=== PATIENT | male | born 1985 | race Caucasian/White ===

== ENCOUNTER 2017-01-19 20:57 | Emergency (ER) | payer BC ==
[2017-01-19 21:06] VITALS: BP 117/73; PULSE 81; RESP 17; TEMP 98.4; O2SAT 96
--- NOTE | 2017-01-19 21:37 | EDPHY ---
H & P Smoking Status: Never smoked Time Seen by Provider: 01/19/17 21:22 HPI/ROS: CHIEF COMPLAINT: Facial trauma HISTORY OF PRESENT ILLNESS: 31-year-old male presents to the emergency department after he fell 2 days ago onto his nose. He did not lose consciousness. He was concerned because he is still having pain in his nose and he is having difficulty breathing out of his nose. The patient did have epistaxis right after the fall, however has not had any problems with this since then. No chest pain or difficulty breathing. He states it was purely a mechanical fall. He denies a headache. Denies chest pain or difficulty breathing. Denies neck or back pain. Denies injury to upper lower extremities. Denies abdominal pain. REVIEW OF SYSTEMS: Constitutional: No fever, no chills. Eyes: No double or blurry vision. ENT: No sore throat. Respiratory: No cough, no shortness of breath. Cardiac: No chest pain. Gastrointestinal: No abdominal pain, vomiting or diarrhea. Genitourinary: No dysuria. Musculoskeletal: No neck or back pain. Skin: No rashes. Neurological: No headache. (Zahra Lomas) Past Medical/Surgical History: Negative (Zahra Lomas) Social History: Single (Zahra Lomas) Physical Exam: General Appearance: Alert, no distress. Mentating normally and answering questions appropriately. Eyes: Pupils equal and round. Extraocular motions are all intact. ENT: Mouth: Mucous membranes moist. No septal hematoma. No epistaxis. Tender to palpate both over the left and the right nasal bone. Nontender to palpate over the maxillary or frontal sinuses. Nontender to palpate over the orbits. Respiratory: No wheezing, rhonchi, or rales, lungs are clear to auscultation. Cardiovascular: Regular rate and rhythm. Gastrointestinal: Abdomen is soft and nontender, no masses, no rebound or guarding, bowel sounds normal. Neurological: Alert and oriented x 3, cranial nerves II through XII grossly intact Skin: Warm and dry, no rashes. Musculoskeletal: Nontender to palpate along the cervical, thoracic or lumbar spine. Neck is supple. Extremities: Full range of motion and no peripheral edema. Pain with palpation over the left 5th PIP joint. Full flexion and extension. No rotational deformities. No ecchymosis, abrasion or puncture wound. Psychiatric: Patient is oriented X 3, there is no agitation. (Zahra Lomas) Constitutional: Initial Vital Signs Temperature (C) 36.9 C 01/19/17 21:05 Heart Rate 81 01/19/17 21:05 Respiratory Rate 17 01/19/17 21:05 Blood Pressure 117/73 01/19/17 21:05 O2 Sat (%) 96 01/19/17 21:05 O2 Delivery Mode Room Air Allergies/Adverse Reactions: hydrocortisone Allergy (Verified 01/19/17 21:05) Home Medications: Medication Instructions Recorded NK [No Known Home Meds] 01/19/17 Medical Decision Making ED Course/Re-evaluation: 31-year-old male presents after closed head injury with. The patient fell 2 days ago. He is mentating normally. I do not think CT imaging is indicated. Clinically I think this patient has a nasal bone fracture. I do not think imaging is necessary. He has no evidence of orbital injury or injury to his sinuses. This was discussed with the patient. I also gave the patient ENT referral and he will follow up this week. The patient does have some mild swelling to the PIP joint of the left 5th finger. He declined x-rays. (Fozia Lomasrina Ria) I did not see this patient while he was in the emergency department. However his care was discussed with the PA while the patient was in the department. I agree with treatment plan and management (Tung Wallace) Differential Diagnosis: Head injury including but not limited to concussion, skull fracture, intraparenchymal contusion, subarachnoid, subdural and epidural hematoma. (Zahra Lomas) Departure - Departure Disposition: Home, Routine, Self-Care Clinical Impression: Contusion left small finger Nasal bone fracture Qualifiers: Encounter type: initial encounter Fracture type: closed Qualified Code(s): S02.2XXA - Fracture of nasal bones, initial encounter for closed fracture Condition: Good Instructions: Nasal Fracture (ED), Finger Sprain (ED) Additional Instructions: Ibuprofen 600 mg every 8 hours as needed for pain. Return to the emergency department if you develop numbness or tingling in your fingers, pain in your other fingers. Fortunato-taped fingers for comfort and support. Follow up with ENT next week to recheck your clinical nasal bone fracture. You are clear to return to work. Referrals: Tung Martinez MD [Medical Doctor] - 2-3 days without fail (ENT on-call) Stand Alone Forms: Work Excuse
== END 2017-01-19 22:00 | disposition home or self-care (01) ==
DX: S02.2XXA Fracture of nasal bones, initial encounter for closed fracture (principal); S60.052A Contusion of left little finger without damage to nail, initial encounter; W18.39XA Other fall on same level, initial encounter

== ENCOUNTER 2017-06-22 21:21 | Emergency (ER) | payer BC ==
[2017-06-22 21:26] VITALS: TEMP 97.5
--- NOTE | 2017-06-22 21:54 | EDPHY ---
H & P Stated Complaint: nausea vomiting, diarrhea x 1 week HPI/ROS: HPI CHIEF COMPLAINT: Nausea vomiting and diarrhea HISTORY OF PRESENT ILLNESS: This patient very pleasant 32-year-old male otherwise healthy no significant medical history does not take any daily medications presents emergency room nausea vomiting diarrhea. Patient reports to me that for approximately a week he has had some watery diarrhea nonbloody. Denies any fever. Denies abdominal pain. Denies chest pain or shortness of breath. He additionally reports nausea with this. Worse after he eats. He developed 1 episode of vomiting at 10:00 a.m. this morning. States he gets worsening nausea vomiting and diarrhea. Denies fever. Recent travel. Blood in his stool. Denies abdominal pain. Decided come the emergency room as he vomited 10:00 a.m.. Ongoing diarrhea. Had to leave work yesterday. Past Medical History: No significant medical history Past Surgical History: No significant surgical history Social History: Denies daily use of drugs alcohol tobacco products. Family History: Noncontributory ROS REVIEW OF SYSTEMS: A comprehensive 10 point review of systems is otherwise negative aside from elements mentioned in the history of present illness. Exam Constitutional appears well nontoxic, triage nursing summary reviewed, vital signs reviewed, awake/alert. Eyes normal conjunctivae and sclera, EOMI, PERRLA. HENT normal inspection, atraumatic, moist mucus membranes, no epistaxis, neck supple/ no meningismus, no raccoon eyes. Respiratory clear to auscultation bilaterally, normal breath sounds, no respiratory distress, no wheezing. Cardiovascular rate normal, regular rhythm, no murmur, no edema, distal pulses normal. Gastrointestinal no tenderness on palpation. soft, non-tender, no rebound, no guarding, normal bowel sounds, no distension, no pulsatile mass. Genitourinary no CVA tenderness. Musculoskeletal no midline vertebral tenderness, full range of motion, no calf swelling, no tenderness of extremities, no meningismus, good pulses, neurovascularly intact. Skin pink, warm, & dry, no rash, skin atraumatic. Neurologic awake, alert and oriented x 3, AAOx3, moves all 4 extremities equally, motor intact, sensory intact, CN II-XII intact, normal cerebellar, normal vision, normal speech. Psychiatric normal mood/affect. Heme/Lymph/Immune no lymphadenopathy. Differential Diagnosis: Includes but is not limited to in a particular order dehydration, electrolyte disturbance, acute diarrheal illness, viral syndrome, enteritis, colitis, viral diarrheal process, bacterial diarrheal process Medical Decision Making: Plan for this patient IV establishment with IV fluid bolus, 1 L normal saline, IV Zofran for nausea, blood work, I do not feel that he needs any imaging at this time. Will crest stool studies if patient can provide. Re-evaluation: 2237: Patient's blood work reviewed. Shows elevated LFTs mild. Recommend close follow-up with his primary care doctor to have these recheck. He does not have any right upper quadrant abdominal pain. Bilirubin normal. This setting of having acute diarrheal illness with elevated LFTs possibly viral. Recommend recheck of a LFTs with his primary next week. Also return precautions given emergency room return if worsening symptoms including diarrhea turned bloody, vomiting, fever, abdominal pain. He understands. 2335: Re-evaluation this time patient not any vomiting. No bowel movement here. Stool collection kit sent with him. He understands return emergency room if develops worsening abdominal pain fever vomiting. Worsening diarrhea. His abdomen is soft. No vomiting here. No fever. LFTs noted I discussed this with him. Understands follow-up primary care doctor for recheck. Understands return precautions. Source: Patient - Personal History Current Tetanus Diphtheria and Acellular Pertussis (TDAP): Yes - Medical/Surgical History Hx Asthma: No Hx Chronic Respiratory Disease: No Hx Diabetes: No Hx Cardiac Disease: No Hx Renal Disease: No Hx Cirrhosis: No Hx Alcoholism: No Hx HIV/AIDS: No Hx Splenectomy or Spleen Trauma: No Other PMH: denies - Social History Smoking Status: Never smoked Constitutional: Initial Vital Signs Temperature (C) 36.4 C 06/22/17 21:23 Heart Rate 81 06/22/17 21:23 Respiratory Rate 16 06/22/17 21:23 Blood Pressure 124/88 H 06/22/17 21:23 O2 Sat (%) 91 L 06/22/17 21:23 O2 Delivery Mode Room Air Allergies/Adverse Reactions: hydrocortisone Allergy (Verified 01/19/17 21:05) Home Medications: Medication Instructions Recorded Ondansetron HCl [Zofran] 4 mg PO Q4-6PRN PRN #10 tablet 06/22/17 Medical Decision Making - Data Points Laboratory Results: Laboratory Results 06/22/17 21:40 06/22/17 21:40 06/22/17 06/22/17 21:40 21:40 WBC 6.91 10^3/uL 10^3/uL (3.80-9.50) RBC 4.95 10^6/uL 10^6/uL (4.40-6.38) Hgb 16.7 g/dL g/dL (13.7-17.5) Hct 46.2 % % (40.0-51.0) MCV 93.3 fL fL (81.5-99.8) MCH 33.7 pg pg (27.9-34.1) MCHC 36.1 g/dL g/dL (32.4-36.7) RDW 12.3 % % (11.5-15.2) Plt Count 283 10^3/uL 10^3/uL (150-400) MPV 9.6 fL fL (8.7-11.7) Neut % (Auto) 58.7 % % (39.3-74.2) Lymph % (Auto) 29.7 % % (15.0-45.0) [place] % (Auto) 8.0 % % (4.5-13.0) Eos % (Auto) 2.7 % % (0.6-7.6) Baso % (Auto) 0.6 % % (0.3-1.7) Nucleat RBC Rel Count 0.0 % % (0.0-0.2) Absolute Neuts (auto) 4.06 10^3/uL 10^3/uL (1.70-6.50) Absolute Lymphs (auto) 2.05 10^3/uL 10^3/uL (1.00-3.00) Absolute Monos (auto) 0.55 10^3/uL 10^3/uL (0.30-0.80) Absolute Eos (auto) 0.19 10^3/uL 10^3/uL (0.03-0.40) Absolute Basos (auto) 0.04 10^3/uL 10^3/uL (0.02-0.10) Absolute Nucleated RBC 0.00 10^3/uL 10^3/uL (0-0.01) Immature Gran % 0.3 % % (0.0-1.1) Immature Gran # 0.02 10^3/uL 10^3/uL (0.00-0.10) Sodium 139 mEq/L mEq/L (134-144) Potassium 4.3 mEq/L mEq/L (3.5-5.2) Chloride 103 mEq/L mEq/L (97-110) Carbon Dioxide 23 mEq/l mEq/l (22-31) Anion Gap 13 mEq/L mEq/L (8-16) BUN 12 mg/dL mg/dL (7-23) Creatinine 0.9 mg/dL mg/dL (0.7-1.3) Estimated GFR > 60 Glucose 88 mg/dL mg/dL (70-100) Calcium 9.7 mg/dL mg/dL (8.5-10.4) Total Bilirubin 0.9 mg/dL mg/dL (0.1-1.4) Conjugated Bilirubin 0.3 mg/dL mg/dL (0.0-0.5) Unconjugated Bilirubin 0.6 mg/dL mg/dL (0.0-1.1) AST 143 IU/L H IU/L (17-59) ALT 177 IU/L H IU/L (21-72) Alkaline Phosphatase 68 IU/L IU/L (38-126) Total Protein 7.6 g/dL g/dL (6.3-8.2) Albumin 4.5 g/dL g/dL (3.5-5.0) Lipase 85 IU/L IU/L (23-300) Medications Given: Discontinued Medications Sodium Chloride (Ns) 1,000 mls @ 0 mls/hr IV EDNOW ONE; Wide Open PRN Reason: Protocol Stop: 06/22/17 21:59 Last Admin: 06/22/17 22:04 Dose: 1,000 mls Sodium Chloride (Ns) 1,000 mls @ 0 mls/hr IV ONCE ONE PRN Reason: Wide Open Stop: 06/22/17 23:11 Last Admin: 06/22/17 23:23 Dose: 1,000 mls Ondansetron HCl (Zofran) 4 mg IVP EDNOW ONE Stop: 06/22/17 21:59 Last Admin: 06/22/17 22:05 Dose: 4 mg Departure - Departure Disposition: Home, Routine, Self-Care Clinical Impression: Elevated LFTs Diarrhea Qualifiers: Diarrhea type: unspecified type Qualified Code(s): R19.7 - Diarrhea, unspecified Condition: Good Instructions: Acute Nausea and Vomiting (ED), Acute Diarrhea (ED) Additional Instructions: 1. Return to the emergency room if you have worsening symptoms includes worsening abdominal pain vomiting fever diarrhea. Bloody stool. 2. Please have your elevated LFTs recheck by her primary care doctor. I would do this in the next week. Referrals: NONE *PRIMARY CARE P,. [Primary Care Provider] - As per Instructions Prescriptions: Ondansetron HCl [Zofran] 4 mg PO Q4-6PRN PRN #10 tablet PRN Reason: Nausea/Vomiting, Use 1st
[2017-06-22] MEDS ORDERED: NS 1,000 ML IV ONE ×2 (21:58→23:10)
[2017-06-22] MEDS ORDERED: ONDANSETRON 4 MG/2 ML VIAL IVP ONE (21:58)
[2017-06-22 22:05] LABS: % IMMATURE GRANULYOCYTES 0.3 % (0.0-1.1); ABSOLUTE IMMATURE GRANULOCYTES 0.02 10^3/uL (0.00-0.10); ADD DIFF? NO; ADD MORPH? NO; ADD SCAN? NO; ATYPICAL LYMPHOCYTE FLAG 0 (0-99); FRAGMENT RBC FLAG 0 (0-99); HEMATOCRIT 46.2 % (40.0-51.0); HEMOGLOBIN 16.7 g/dL (13.7-17.5); LEFT SHIFT FLG 0 (0-99); LIPEMIA HEMOLYSIS FLAG 90 (0-99); MEAN CELL HEMOGLOBIN 33.7 pg (27.9-34.1); MEAN CELL HEMOGLOBIN CONCENTR. 36.1 g/dL (32.4-36.7); MEAN CELL VOLUME 93.3 fL (81.5-99.8); MEAN PLATELET VOLUME 9.6 fL (8.7-11.7); PLATELET CLUMPS FLAG 0 (0-99); PLATELET COUNT 283 10^3/uL (150-400); RED BLOOD CELL COUNT 4.95 10^6/uL (4.40-6.38); RED CELL DISTRIBUTION WIDTH 12.3 % (11.5-15.2)
[2017-06-22 22:22] LABS: ALANINE AMINOTRANSFERASE 177 IU/L (21-72); ALBUMIN 4.5 g/dL (3.5-5.0); ALKALINE PHOSPHATASE 68 IU/L (38-126); ANION GAP 13 mEq/L (8-16); ASPARTATE AMINOTRANSFERASE 143 IU/L (17-59); BILIRUBIN,TOTAL 0.9 mg/dL (0.1-1.4); BILIRUBIN-CONJUGATED 0.3 mg/dL (0.0-0.5); BILIRUBIN-UNCONJUGATED 0.6 mg/dL (0.0-1.1); CALCIUM 9.7 mg/dL (8.5-10.4); CARBON DIOXIDE 23 mEq/l (22-31); CHLORIDE 103 mEq/L (97-110); CREATININE 0.9 mg/dL (0.7-1.3); GLOMERULAR FILTRATION RATE > 60; GLUCOSE 88 mg/dL (70-100); POTASSIUM 4.3 mEq/L (3.5-5.2); SODIUM 139 mEq/L (134-144); TOTAL PROTEIN 7.6 g/dL (6.3-8.2)
[2017-06-23 00:11] VITALS: BP 112/77; PULSE 62; RESP 16; O2SAT 98
[2017-06-23 00:57] LABS: COLOR YELLOW; LEUKOCYTE ESTERASE,URINE NEGATIVE (NEGATIVE); NITRITE,URINE NEGATIVE (NEGATIVE)
[2017-06-23 00:59] LABS: MUCUS TRACE /lpf (NONE-1+)
== END 2017-06-23 01:03 | disposition home or self-care (01) ==
DX: R19.7 Diarrhea, unspecified (principal); R79.89 Other specified abnormal findings of blood chemistry
CPT/HCPCS: 96374; J2405

== ENCOUNTER 2017-10-22 15:14 | Emergency (ER) | payer BC, MEDICAID ==
[2017-10-22 15:19] VITALS: BP 142/84; PULSE 82; RESP 18; TEMP 98.4; O2SAT 94
--- NOTE | 2017-10-22 16:12 | EDPHY ---
H & P Time Seen by Provider: 10/22/17 15:49 HPI/ROS: Chief complaint: Insomnia History of present illness: This is a 32-year-old male who presents to the emergency department for insomnia. He states he has been unable to sleep for the last week. He has a long history of insomnia. He normally takes Rozeram but this is currently not controlling symptom. He states he is getting so exhausted that he is having trouble functioning. He denies other associated signs or symptoms. Review of systems: 10 point review of systems was obtained and other than described above was negative Smoking Status: Never smoked Physical Exam: General Appearance: Alert, nontoxic. Eyes: Pupils equal and round no injection. Respiratory: Chest is non tender, lungs are clear to auscultation. Cardiac: regular rate and rhythm Gastrointestinal: Abdomen is soft and non tender, no masses, bowel sounds normal. Musculoskeletal: Neck is supple and non tender. Extremities have full range of motion and are non tender. Skin: No rashes or lesions. Neurological: Alert and oriented x4. Strength and sensation intact and symmetrical. Constitutional: Initial Vital Signs Temperature (C) 36.9 C 10/22/17 15:15 Heart Rate 82 10/22/17 15:15 Respiratory Rate 18 10/22/17 15:15 Blood Pressure 142/84 H 10/22/17 15:15 O2 Sat (%) 94 10/22/17 15:15 O2 Delivery Mode Room Air Allergies/Adverse Reactions: hydrocortisone Allergy (Mild, Verified 10/22/17 15:18) Rash Home Medications: Medication Instructions Recorded Ramelteon [Rozerem] 8 mg PO 10/22/17 Temazepam [Restoril 15 MG (*)] 15 mg PO HSPRN PRN #5 cap 10/22/17 MDM/Departure - MDM ED Course/Re-evaluation: Patient seen under the supervision of my secondary supervising physician Dr. Priti Luo. Patient presents to the emergency department for insomnia. He is nontoxic. Physical exam is benign. We have discussed medications, he has been on multiple medications that have not worked well except for Rozerem which is currently not working well. I will treat him with a short course of Restoril. I have had a lengthy discussion that he is not to combine his sleep medications, he is only to use the one. I have discussed the importance of following up with a primary care doctor for further evaluation and care. He is given referral information. Return precautions are given. Patient voiced understanding and agreement with plan. - Depart Disposition: Home, Routine, Self-Care Clinical Impression: Insomnia Qualifiers: Insomnia type: unspecified Qualified Code(s): G47.00 - Insomnia, unspecified Condition: Good Instructions: Insomnia (ED) Additional Instructions: Follow-up with a primary care doctor this week for recheck Do not combine sleep medications, take only the medication you were prescribed today If symptoms worsen or new symptoms develop return to the emergency room for recheck Stand Alone Forms: Work Excuse Prescriptions: Temazepam [Restoril 15 MG (*)] 15 mg PO HSPRN PRN #5 cap PRN Reason: Achieve Desired Sedation Referrals: NONE *PRIMARY CARE P,. [Primary Care Provider] - As per Instructions [facility],. [Clinic] - As per Instructions Charisma Holland DO [Doctor of Osteopathy] - As per Instructions
== END 2017-10-22 16:26 | disposition home or self-care (01) ==
DX: G47.00 Insomnia, unspecified (principal)

== ENCOUNTER 2017-12-14 10:19 | Emergency (ER) | payer SELFPAY ==
[2017-12-14] MEDS ORDERED: KETOROLAC 30 MG/1 ML SDV IVP ONE (11:03)
[2017-12-14] MEDS ORDERED: NS 1,000 ML IV ONE (11:04)
--- NOTE | 2017-12-14 11:11 | EDPHY ---
H & P Time Seen by Provider: 12/14/17 10:56 HPI/ROS: CHIEF COMPLAINT: Abdominal HISTORY OF PRESENT ILLNESS: The patient is a 32-year-old male who presents to the emergency department with intermittent chronic abdominal pain. His current pain started 1-2 weeks ago. He states it is intermittent. It is primarily in the right lower quadrant. It is moderate. It proved after he has a bowel movement. He has had no nausea or vomiting. No fever or chills. No dysuria frequency. No flank pain. Patient states this is similar to his previous episodes of abdominal pain. Patient trauma. REVIEW OF SYSTEMS: My complete review of systems is negative except as mentioned in the HPI. Past Medical/Surgical History: Includes chronic abdominal pain, insomnia Past surgical history: No abdominal surgery Social history: Patient uses THC. He does not smoke or use alcohol. Smoking Status: Never smoked Physical Exam: Vitals noted GENERAL: Well-appearing, in no acute distress, alert. HEENT: Eyes normal to inspection, normal pharynx, no signs of dehydration. NECK: [No thyromegaly, no lymphadenopathy, supple. RESPIRATORY: Clear to auscultation bilaterally, no rales, rhonchi or wheezing. CVS: Regular rate and rhythm, no rubs, murmurs, or gallops. ABDOMEN: Soft, mild lower quadrant abdominal tenderness to palpation with no rebound or guarding, nondistended, no organomegaly. BACK: Normal to inspection, no CVA tenderness. SKIN: Normal color, no rash, warm, dry. No pallor. EXTREMITIES: No pedal edema, no calf tenderness, no Homans sign or cords, no joint swelling. NEURO/PSYCH: Alert and oriented, normal mood and affect, normal motor sensory exam. Constitutional: Initial Vital Signs Temperature (C) 36.5 C 12/14/17 10:20 Heart Rate 75 12/14/17 10:20 Respiratory Rate 16 12/14/17 10:20 Blood Pressure 119/92 H 12/14/17 10:20 O2 Sat (%) 97 12/14/17 10:20 O2 Delivery Mode Room Air Allergies/Adverse Reactions: hydrocortisone Allergy (Mild, Verified 12/14/17 10:25) Rash Home Medications: Medication Instructions Recorded NK [No Known Home Meds] 12/14/17 Medical Decision Making - Diagnostics Imaging Results: Imaging Impressions Abdomen Ultrasound 12/14/17 11:08 Impression: No indirect sonographic evidence for appendicitis. Results called to Dr. Man at 12:44 PM. ED Course/Re-evaluation: In the emergency department I discussed possible etiologies with the patient. I answered all his questions. An IV was placed. Laboratories were obtained. A right lower quadrant was ordered. Patient had Toradol 30 mg IV given. Reviewed the laboratory studies. His white count was normal. His LFTs remarkable for mildly elevated AST and ALT. Total bili and unconjugated bili were normal. Ultrasound: Please refer the dictated report. They were unable to visualize the appendix. The on recheck the patient still mild abdominal discomfort. He is given Bentyl. He will have a CT of the abdomen pelvis with IV contrast. CT of the abdomen pelvis with IV contrast: Please refer the dictated report. Normal appearing appendix. Patient does have a fatty liver. His bowel appears normal. The patient has bilateral nephrolithiasis. No obstruction. I discussed the results with the patient. On recheck he was feeling better. His abdomen was soft and nontender. I answered all his questions. He is given warnings prior to leaving. He will return with worsening symptoms. Differential Diagnosis: My differential includes but is not limited to small-bowel obstruction, perforation, appendicitis, volvulus, intussusception, viral illness, IBS - Data Points Laboratory Results: Laboratory Results 12/14/17 11:00 12/14/17 11:00 12/14/17 12/14/17 11:00 11:00 WBC 7.24 10^3/uL 10^3/uL (3.80-9.50) RBC 4.89 10^6/uL 10^6/uL (4.40-6.38) Hgb 17.4 g/dL g/dL (13.7-17.5) Hct 48.5 % % (40.0-51.0) MCV 99.2 fL fL (81.5-99.8) MCH 35.6 pg H pg (27.9-34.1) MCHC 35.9 g/dL g/dL (32.4-36.7) RDW 12.0 % % (11.5-15.2) Plt Count 227 10^3/uL 10^3/uL (150-400) MPV 10.0 fL fL (8.7-11.7) Neut % (Auto) 58.7 % % (39.3-74.2) Lymph % (Auto) 26.8 % % (15.0-45.0) [place] % (Auto) 9.5 % % (4.5-13.0) Eos % (Auto) 4.0 % % (0.6-7.6) Baso % (Auto) 0.6 % % (0.3-1.7) Nucleat RBC Rel Count 0.0 % % (0.0-0.2) Absolute Neuts (auto) 4.25 10^3/uL 10^3/uL (1.70-6.50) Absolute Lymphs (auto) 1.94 10^3/uL 10^3/uL (1.00-3.00) Absolute Monos (auto) 0.69 10^3/uL 10^3/uL (0.30-0.80) Absolute Eos (auto) 0.29 10^3/uL 10^3/uL (0.03-0.40) Absolute Basos (auto) 0.04 10^3/uL 10^3/uL (0.02-0.10) Absolute Nucleated RBC 0.00 10^3/uL 10^3/uL (0-0.01) Immature Gran % 0.4 % % (0.0-1.1) Immature Gran # 0.03 10^3/uL 10^3/uL (0.00-0.10) Sodium 141 mEq/L mEq/L (135-145) Potassium 4.2 mEq/L mEq/L (3.5-5.2) Chloride 98 mEq/L mEq/L (97-110) Carbon Dioxide 27 mEq/l mEq/l (22-31) Anion Gap 16 mEq/L mEq/L (8-16) BUN 10 mg/dL mg/dL (7-23) Creatinine 0.8 mg/dL mg/dL (0.7-1.3) Estimated GFR > 60 Glucose 97 mg/dL mg/dL (70-100) Calcium 9.8 mg/dL mg/dL (8.5-10.4) Total Bilirubin 1.2 mg/dL mg/dL (0.1-1.4) Conjugated Bilirubin 0.5 mg/dL mg/dL (0.0-0.5) Unconjugated Bilirubin 0.7 mg/dL mg/dL (0.0-1.1) AST 213 IU/L H IU/L (17-59) ALT 278 IU/L H IU/L (21-72) Alkaline Phosphatase 70 IU/L IU/L (38-126) Total Protein 8.1 g/dL g/dL (6.3-8.2) Albumin 5.0 g/dL g/dL (3.5-5.0) Lipase 154 IU/L IU/L (23-300) Medications Given: Discontinued Medications Sodium Chloride (Ns) 1,000 mls @ 0 mls/hr IV ONCE ONE PRN Reason: Wide Open Stop: 12/14/17 11:05 Last Admin: 12/14/17 11:05 Dose: 1,000 mls Ketorolac Tromethamine (Toradol) 30 mg IVP EDNOW ONE Stop: 12/14/17 11:04 Last Admin: 12/14/17 11:06 Dose: 30 mg Ondansetron HCl (Zofran) 4 mg IVP EDNOW ONE Stop: 12/14/17 13:08 Last Admin: 12/14/17 13:10 Dose: 4 mg Departure - Departure Disposition: Home, Routine, Self-Care Clinical Impression: Abdominal pain Qualifiers: Abdominal location: right lower quadrant Qualified Code(s): R10.31 - Right lower quadrant pain Condition: Good Instructions: Acute Abdominal Pain (ED) Additional Instructions: Return with increasing abdominal pain, vomiting, or any other concerns. You been given follow-up with the geographic information scientist. Call to make an appointment. Referrals: Chuy Melchor MD [Medical Doctor] - 5-7 days, if not improved
[2017-12-14 11:12] LABS: PLATELET COUNT 227 10^3/uL (150-400)
[2017-12-14] MEDS ORDERED: ONDANSETRON 4 MG/2 ML VIAL IVP ONE (13:07)
[2017-12-14] MEDS ORDERED: IOPAMIDOL (ISOVUE-300) 100 ML BTL ONE (13:38)
[2017-12-14 14:49] VITALS: RESP 18
[2017-12-14 15:04] VITALS: BP 120/84; PULSE 67; TEMP 98.1; O2SAT 96
== END 2017-12-14 15:03 | disposition home or self-care (01) ==
DX: R10.31 Right lower quadrant pain (principal)
CPT/HCPCS: 96374; J1885; J2405; Q9967

== ENCOUNTER 2018-02-14 02:23 | Emergency (ER) | payer SELFPAY ==
[2018-02-14] MEDS ORDERED: FAMOTIDINE 20 MG/NACL 50 ML IV ONE (02:45)
[2018-02-14] MEDS ORDERED: ONDANSETRON 4 MG/2 ML VIAL IVP ONE (02:45)
[2018-02-14] MEDS ORDERED: KETOROLAC 30 MG/1 ML SDV IVP ONE (02:45)
[2018-02-14] MEDS ORDERED: NS 1,000 ML IV ONE ×3 (02:45→03:51)
--- NOTE | 2018-02-14 02:45 | EDPHY ---
H & P Stated Complaint: vomiting for 3 days Time Seen by Provider: 02/14/18 02:34 HPI/ROS: HPI The patient presents with nausea, vomiting, abdominal pain which has been present for the last 5 days though getting progressively worse. It began with nausea and vomiting and then he has developed mid abdominal crampy intermittent abdominal pain with this. He says now it is to the point that he cannot take water in by mouth without vomiting. He has had multiple similar episodes though believes this is the most severe 1. He has not had any diarrhea. He has not had any fever. He denies any sick contacts.. He uses marijuana occasionally though since this illness he has been using it daily to see if it will help his symptoms and it has not. He denies any alcohol use recently. REVIEW OF SYSTEMS Constitutional: No fever, no chills. Eyes: No discharge. ENT: No sore throat. Cardiovascular: No chest pain, no palpitations. Respiratory: No cough, no shortness of breath. Gastrointestinal: See HPI Genitourinary: No hematuria. Musculoskeletal: No back pain. Skin: No rashes. Neurological: No headache. PMHx: Recurrent chronic abdominal pain Soc Hx: Occasional alcohol use, occasional marijuana use, nonsmoker PHYSICAL General Appearance: Alert, no distress Eyes: Pupils equal and round no pallor or injection ENT, Mouth: Mucous membranes dry Respiratory: There are no retractions, lungs are clear to auscultation Cardiovascular: Regular rate and rhythm Gastrointestinal: Abdomen is soft and mildly tender in the epigastrium, no masses, bowel sounds normal Neurological: A&O, moves all extremities Skin: Warm and dry, no rashes Musculoskeletal: Neck is supple non tender Extremities: symmetrical, full range of motion Psychiatric: Patient is oriented X 3, there is no agitation Source: Patient Exam Limitations: No limitations - Personal History Current Tetanus/Diphtheria Vaccine: Unsure Current Tetanus Diphtheria and Acellular Pertussis (TDAP): Unsure - Medical/Surgical History Hx Asthma: No Hx Chronic Respiratory Disease: No Hx Diabetes: No Hx Cardiac Disease: No Hx Renal Disease: No Hx Cirrhosis: No Hx Alcoholism: No Hx HIV/AIDS: No Hx Splenectomy or Spleen Trauma: No Other PMH: insomnia. chronic abd pain~1yr with neg w/u - Social History Smoking Status: Never smoked Constitutional: Initial Vital Signs Temperature (C) 36.8 C 02/14/18 02:25 Heart Rate 92 02/14/18 02:25 Respiratory Rate 18 02/14/18 02:25 Blood Pressure 114/84 H 02/14/18 02:25 O2 Sat (%) 94 02/14/18 02:25 O2 Delivery Mode Room Air O2 (L/minute) 2 Allergies/Adverse Reactions: hydrocortisone Allergy (Mild, Verified 02/14/18 02:28) Rash haloperidol Allergy (Verified 02/14/18 02:28) Home Medications: Medication Instructions Recorded Ondansetron Odt [Zofran Odt 4 mg 4 mg PO Q4 PRN #10 tab 02/14/18 (*)] Medical Decision Making Differential Diagnosis: This is a 32-year-old man with history of intermittent chronic abdominal pain who presents with nausea, vomiting, abdominal pain which have been present for the last 5 days and getting progressively worse. On exam, vital signs are normal, mucous membranes are dry, abdominal exam demonstrates mild epigastric tenderness. Differential diagnosis includes viral gastroenteritis, toxin mediated enterocolitis, gastritis, pancreatitis, cannabinoid hyperemesis syndrome, cyclic vomiting syndrome. In the emergency department, IV line was established and the patient was started on IV fluids and medication for his symptoms. Labs were checked Labs revealed an anion gap which I suspect is due to dehydration. He also has elevations of his transaminases. He has had this on previous laboratory testing , however this is slightly worse today. On review of his prior imaging in November he had a CT scan of his abdomen which revealed fatty infiltration of his liver which was quite severe. I suspect this is the cause of his transaminitis. After IV fluids, he was reassessed, he is feeling better. His abdominal exam is benign. He no longer has any epigastric tenderness. He was able to take fluids by mouth without any ongoing nausea or vomiting. He felt well enough to go home. He does not have a primary care doctor at this time, thus I will refer him to the outpatient doctor on-call. I have discussed return precautions to the emergency department. - Data Points Laboratory Results: Laboratory Results 02/14/18 02:50 02/14/18 02:50 Medications Given: Discontinued Medications Fentanyl (Sublimaze) 50 mcg IVP EDNOW ONE Stop: 02/14/18 03:52 Last Admin: 02/14/18 04:09 Dose: 50 mcg Sodium Chloride (Ns) 1,000 mls @ 0 mls/hr IV EDNOW ONE; Wide Open PRN Reason: Protocol Stop: 02/14/18 02:46 Last Admin: 02/14/18 02:51 Dose: 1,000 mls Sodium Chloride (Ns) 1,000 mls @ 0 mls/hr IV EDNOW ONE; Wide Open PRN Reason: Protocol Stop: 02/14/18 02:46 Last Admin: 02/14/18 03:00 Dose: 1,000 mls Famotidine/Sodium Chloride (Pepcid 20 Mg (Premix)) 50 mls @ 200 mls/hr IV EDNOW ONE Stop: 02/14/18 02:59 Last Admin: 02/14/18 02:55 Dose: 50 mls Sodium Chloride (Ns) 1,000 mls @ 0 mls/hr IV EDNOW ONE; Wide Open PRN Reason: Protocol Stop: 02/14/18 03:52 Last Admin: 02/14/18 04:09 Dose: 1,000 mls Ketorolac Tromethamine (Toradol) 15 mg IVP EDNOW ONE Stop: 02/14/18 02:46 Last Admin: 02/14/18 02:56 Dose: 15 mg Lorazepam (Ativan Injection) 1 mg IVP EDNOW ONE Stop: 02/14/18 02:55 Last Admin: 02/14/18 03:00 Dose: 1 mg Ondansetron HCl (Zofran) 4 mg IVP EDNOW ONE Stop: 02/14/18 02:46 Last Admin: 02/14/18 02:56 Dose: 4 mg Ondansetron HCl (Zofran Odt 4 Mg Prepack#2) 1 btl TAKEHOME EDNOW ONE Stop: 02/14/18 05:06 Last Admin: 02/14/18 05:18 Dose: 1 btl Departure - Departure Disposition: Home, Routine, Self-Care Clinical Impression: Nausea & vomiting, Abdominal pain, Transaminitis Condition: Good Instructions: Ondansetron (By mouth), Acute Nausea and Vomiting (ED), Acute Abdominal Pain (ED) Additional Instructions: Please drink clear liquids until your feeling better, then you can try bland foods. His you should return to the emergency department if your worse in any way. I recommend you established care with a primary care doctor and I have listed the name of the doctor below that you should follow up with. Referrals: Coni Figueroa MD [[facility] [place]] - As per Instructions Prescriptions: Ondansetron Odt [Zofran Odt 4 mg (*)] 4 mg PO Q4 PRN #10 tab PRN Reason: Nausea/Vomiting, Can'T Take Po
[2018-02-14] MEDS ORDERED: LORazepam 2 MG/ML INJ IVP ONE (02:54)
[2018-02-14 02:59] LABS: PLATELET COUNT 236 10^3/uL (150-400)
[2018-02-14] MEDS ORDERED: fentaNYL 100 MCG/2 ML INJ IVP ONE (03:51)
[2018-02-14] MEDS ORDERED: ONDANSETRON 4MG PREPACK#2 BTL TAKEHOME ONE (05:05)
[2018-02-14 05:15] VITALS: BP 107/61
== END 2018-02-14 05:32 | disposition home or self-care (01) ==
DX: R74.0 Nonspecific elevation of levels of transaminase and lactic acid dehydrogenase [LDH] (principal); E86.9 Volume depletion, unspecified
CPT/HCPCS: 96374; J1885; J2060; J2405; J3010

== ENCOUNTER 2018-02-18 22:36 | Emergency (ER) | payer SELFPAY ==
[2018-02-18] MEDS ORDERED: FAMOTIDINE 20 MG TAB PO ONE (23:12)
[2018-02-18] MEDS ORDERED: NS 1,000 ML IV ONE (23:12)
--- NOTE | 2018-02-18 23:12 | EDPHY ---
General - History Smoking Status: Never smoked Time Seen by Provider: 02/18/18 23:03 Narrative: CHIEF COMPLAINT: Nausea, vomiting, insomnia HISTORY OF PRESENT ILLNESS: Patient presents with complaints of nausea, vomiting insomnia. This has been going on "for a while," but it worsened on Sunday or Sunday. He describes it as multiple episodes of vomiting with some tolerance of liquids including alcohol. No tolerance of solids. Denies fever or trauma. Denies any previous abdominal surgeries but reports history of vomiting frequently with GERD and chronic abdominal pain. He does admit to smoking marijuana daily. He denies any previous formal diagnosis. No bloody emesis. Some diarrhea but no constipation. No bloody stool. He has so sees this with difficulty sleeping over the past several days. He says that "I'm so tired I'm hallucinating." Denies suicidal ideation or homicidal ideation. No other associated complaints or modifying factors. REVIEW OF SYSTEMS: Ten systems reviewed and are negative unless otherwise noted in the HPI PCP: In [place] SPECIALISTS: None PAST MEDICAL HISTORY: Reflux, insomnia, chronic abdominal pain PAST SURGICAL HISTORY: No abdominal surgeries. SOCIAL HISTORY: Denies tobacco use. Quit 3 years ago. Occasional alcohol use. Smokes marijuana daily. FAMILY HISTORY: Noncontributory EXAMINATION General Appearance: Alert, no distress Head: normocephalic, atraumatic Eyes: Pupils equal and round, no conjunctival pallor or injection ENT, Mouth: Mucous membranes moist Neck: Normal inspection, supple, non-tender Respiratory: Lungs are clear to auscultation Cardiovascular: Regular rate and rhythm. No murmur Gastrointestinal: Abdomen is soft and nontender. No tympany rigidity. No distention. Benign abdominal examination. Back: non-tender, no bony abnormalities Neurological: A&O, nonfocal, normal gait Skin: Warm and dry, no rash Extremities: Nontender, no pedal edema Psychiatric: Mood and affect normal DIFFERENTIAL DIAGNOSES: Including but not limited to alcoholic gastritis, pancreatitis, THC gastritis, enteritis, insomnia, sofia, bipolar disorder MDM: 11:05 p.m. Nausea vomiting insomnia with likely cyclical vomiting. Patient does frequently use marijuana, suggesting the possibility of THC gastritis. His vital signs are within normal limits. He is in no acute distress and has a benign abdominal examination. He describes some possible hallucinations, but at this point I do not feel he is exhibiting any psychosis. His GCS is 15 and he has normal mentation. I have ordered laboratory studies, IV fluid, Haldol and Pepcid. Discussed with Dr. Crow. 11:45 p.m. I had originally ordered Haldol for the patient. I was then notified that he claims this as a drug allergy. I have discussed with him he tells me that in the past he was given Haldol and "my jaw went to the side, and it was hard to talk." He describes what was likely a dystonic reaction. I have canceled disorder and will switch to Reglan and Benadryl. He informs me that he thinks he has had those in the past with no difficulty. Additionally, IV has been placed but they were unable to obtain any blood from this. Second IV will be placed 12:15 a.m. At this time, I have discussed the patient with Dr. Crow. He will assume care of the patient. He is pending laboratory studies an medication response. Please see the note of Dr. Crow for further care and disposition. Patient is stable at this time no acute distress. SUPERVISION: Patient was evaluated and examined in conjunction with my secondary supervising physician as documented. We have both examined the patient. (Fabio Hendrix) 0005 care assumed by me from DON Hendrix pending improvement in symptoms. 0035 patient missing from his room. In the bathroom it was found the patient has removed his IV. Patient has left the department. (Dipak Crow) - Objective Vital Signs: Initial Vital Signs Temperature (C) 36.9 C 02/18/18 22:47 Heart Rate 92 02/18/18 22:47 Respiratory Rate 16 02/18/18 22:47 Blood Pressure 123/96 H 02/18/18 22:47 O2 Sat (%) 95 02/18/18 22:47 O2 Delivery Mode Room Air Allergies/Adverse Reactions: hydrocortisone Allergy (Mild, Verified 02/18/18 22:51) Rash haloperidol Allergy (Verified 02/18/18 22:51) Home Medications: Medication Instructions Recorded Ondansetron Odt [Zofran Odt 4 mg 4 mg PO Q4 PRN #10 tab 02/14/18 (*)] Omeprazole 02/18/18 Rozerem 02/18/18 Tums X-Str 02/18/18 Promethazine HCl [Phenergan 25mg 25 mg PO Q8 PRN #12 tab 02/19/18 (*)] Laboratory Results: Laboratory Results 02/19/18 00:02 02/19/18 00:02 02/19/18 02/19/18 00:02 00:02 WBC 10.58 10^3/uL H 10^3/uL (3.80-9.50) RBC 4.70 10^6/uL 10^6/uL (4.40-6.38) Hgb 16.9 g/dL g/dL (13.7-17.5) Hct 46.1 % % (40.0-51.0) MCV 98.1 fL fL (81.5-99.8) MCH 36.0 pg H pg (27.9-34.1) MCHC 36.7 g/dL g/dL (32.4-36.7) RDW 12.4 % % (11.5-15.2) Plt Count 215 10^3/uL 10^3/uL (150-400) MPV 10.5 fL fL (8.7-11.7) Neut % (Auto) 74.5 % H % (39.3-74.2) Lymph % (Auto) 14.7 % L % (15.0-45.0) [place] % (Auto) 8.6 % % (4.5-13.0) Eos % (Auto) 1.5 % % (0.6-7.6) Baso % (Auto) 0.4 % % (0.3-1.7) Nucleat RBC Rel Count 0.0 % % (0.0-0.2) Absolute Neuts (auto) 7.89 10^3/uL H 10^3/uL (1.70-6.50) Absolute Lymphs (auto) 1.55 10^3/uL 10^3/uL (1.00-3.00) Absolute Monos (auto) 0.91 10^3/uL H 10^3/uL (0.30-0.80) Absolute Eos (auto) 0.16 10^3/uL 10^3/uL (0.03-0.40) Absolute Basos (auto) 0.04 10^3/uL 10^3/uL (0.02-0.10) Absolute Nucleated RBC 0.00 10^3/uL 10^3/uL (0-0.01) Immature Gran % 0.3 % % (0.0-1.1) Immature Gran # 0.03 10^3/uL 10^3/uL (0.00-0.10) Sodium 140 mEq/L mEq/L (135-145) Potassium 3.1 mEq/L L mEq/L (3.3-5.0) Chloride 97 mEq/L mEq/L (97-110) Carbon Dioxide 28 mEq/l mEq/l (22-31) Anion Gap 15 mEq/L mEq/L (8-16) BUN 7 mg/dL mg/dL (7-23) Creatinine 0.9 mg/dL mg/dL (0.7-1.3) Estimated GFR > 60 Glucose 92 mg/dL mg/dL (70-100) Calcium 10.2 mg/dL mg/dL (8.5-10.4) Total Bilirubin 1.2 mg/dL mg/dL (0.1-1.4) Conjugated Bilirubin 0.6 mg/dL H mg/dL (0.0-0.5) Unconjugated Bilirubin 0.6 mg/dL mg/dL (0.0-1.1) AST 315 IU/L H IU/L (17-59) ALT 391 IU/L H IU/L (21-72) Alkaline Phosphatase 71 IU/L IU/L (38-126) Total Protein 8.5 g/dL H g/dL (6.3-8.2) Albumin 5.1 g/dL H g/dL (3.5-5.0) Lipase 112 IU/L IU/L (23-300) Medications Given: Discontinued Medications Diphenhydramine HCl (Benadryl Injection) 50 mg IVP EDNOW ONE Stop: 02/18/18 23:53 Last Admin: 02/19/18 00:10 Dose: 50 mg Famotidine (Pepcid) 20 mg PO EDNOW ONE Stop: 02/18/18 23:13 Last Admin: 02/18/18 23:46 Dose: 20 mg Haloperidol Lactate (Haldol Injection) 2.5 mg IVP EDNOW ONE Stop: 02/18/18 23:14 Last Admin: 02/19/18 00:17 Dose: Not Given Sodium Chloride (Ns) 1,000 mls @ 0 mls/hr IV EDNOW ONE; Wide Open PRN Reason: Protocol Stop: 02/18/18 23:13 Last Admin: 02/18/18 23:45 Dose: 1,000 mls Metoclopramide HCl (Reglan Injection) 10 mg IVP EDNOW ONE Stop: 02/18/18 23:53 Last Admin: 02/19/18 00:10 Dose: 10 mg Departure - Departure Disposition: Against Medical Advice Clinical Impression: Gastritis Qualifiers: Gastritis type: other gastritis Chronicity: acute Gastritis bleeding: without bleeding Qualified Code(s): K29.00 - Acute gastritis without bleeding Abdominal pain Qualifiers: Abdominal location: generalized Qualified Code(s): R10.84 - Generalized abdominal pain Condition: Good Instructions: Promethazine (By mouth), Gastritis (ED), Acute Abdominal Pain (ED ) Additional Instructions: 1. Strongly recommend discontinue use of marijuana 2. Recommend Pepcid [id number] 20 mg twice daily for 7-10 days 3. Recommend increase fluid intake 4. Promethazine as prescribed as needed 5. I have provided the on-call primary care physician for you. You will need to contact them to establish for outpatient care 6. ED precautions for worsening symptoms, intractable pain, difficulty with intake of liquids or solids Referrals: [facility],. [Clinic] - As per Instructions Heri Malik MD [place] [place] - As per Instructions Prescriptions: Promethazine HCl [Phenergan 25mg (*)] 25 mg PO Q8 PRN #12 tab PRN Reason: Nausea/Vomiting, Use 1st
[2018-02-18] MEDS ORDERED: HALOPERIDOL LACT 5 MG/ML INJ IVP ONE (23:13)
[2018-02-18] MEDS ORDERED: METOCLOPRAMIDE 10 MG/2 ML VIAL IVP ONE (23:52)
[2018-02-19 00:14] LABS: PLATELET COUNT 215 10^3/uL (150-400)
[2018-02-19 00:43] VITALS: BP 148/86
== END 2018-02-19 00:54 | disposition left against medical advice (07) ==
DX: K29.00 Acute gastritis without bleeding (principal); E86.9 Volume depletion, unspecified
CPT/HCPCS: 96374; J1200; J1630; J2765

== ENCOUNTER 2018-06-07 09:35 | Emergency (ER) | payer OTHER ==
[2018-06-07] MEDS ORDERED: ONDANSETRON 4 MG/2 ML VIAL IVP ONE (09:47)
[2018-06-07] MEDS ORDERED: NS 1,000 ML IV ONE (09:48)
[2018-06-07] MEDS ORDERED: LORazepam 1 MG TAB PO PRN (09:51)
[2018-06-07] MEDS ORDERED: LORazepam 2 MG/ML INJ IVP ONE (09:51)
--- NOTE | 2018-06-07 09:53 | EDPHY ---
H & P Stated Complaint: Denies bleeding, N/V/D x 4 hours. Time Seen by Provider: 06/07/18 09:43 HPI/ROS: CHIEF COMPLAINT: "I think I am withdrawing" HISTORY OF PRESENT ILLNESS: 32-year-old male history of alcohol abuse, history of prior admission in emergency department visit for nausea vomiting an acute alcohol withdrawal in the ER via private vehicle with his friend complaining of intractable vomiting, diarrhea, anxiety. Last drink of alcohol yesterday afternoon. No seizure. No hallucination. REVIEW OF SYSTEMS: 10 systems reviewed and negative with the exception of the elements mentioned in the history of present illness PAST MEDICAL & SURGICAL HISTORY: Alcohol abuse. Alcohol withdrawal admissions. SOCIAL HISTORY: Last drink of alcohol yesterday afternoon PHYSICAL EXAM (Prior to examination, patient consented to physical exam, hands were washed and my usual and customary physical exam procedures followed) 1) GENERAL: Well-developed, well-nourished, alert and oriented. Appears anxious. Tremulous.. Retching 2) HEAD: Normocephalic, atraumatic 3) HEENT: Pupils equal, round, reactive to light bilaterally. Sclera anicteric. Nasopharynx, oropharynx, clear, no lesions. TDry mucous membranes. 4) NECK: Full range of motion, no meningeal signs. 5) LUNGS: Clear auscultation bilaterally, no wheezes, no rhonchi, no retractions. 6) HEART: Regular rate and rhythm, no murmur, no heave, no gallop. 7) ABDOMEN: No guarding, no rebound, no focal tenderness, negative McBurney's, negative Daniel's, negative Rovsing's, negative peritoneal sign, 8) MUSCULOSKELETAL: Moving all extremities, no focal areas of tenderness, no obvious trauma. No peripheral edema or discoloration. 9) BACK: No CVA tenderness, no midline vertebral tenderness, no fluctuance, no step-off, no obvious trauma, no visual or palpable abnormality. 10) SKIN: No rash, no petechiae. 11) Psychiatric: Patient is oriented X 3, appears anxious, is tremulous DIFFERENTIAL DIAGNOSIS: In no particular order including but not limited to acute alcohol withdrawal, alcoholic ketoacidosis, alcoholic hallucinosis, delirium tremens, alcohol withdrawal seizure - Personal History Current Tetanus/Diphtheria Vaccine: Yes - Medical/Surgical History Hx Asthma: No Hx Chronic Respiratory Disease: No Hx Diabetes: No Hx Cardiac Disease: No Hx Renal Disease: No Hx Cirrhosis: No Hx Alcoholism: No Hx HIV/AIDS: No Hx Splenectomy or Spleen Trauma: No Other PMH: insomnia, chronic abd pain, gerd - Social History Smoking Status: Never smoked Constitutional: Initial Vital Signs Temperature (C) 36.5 C 06/07/18 09:38 Heart Rate 120 H 06/07/18 09:38 Respiratory Rate 24 H 06/07/18 09:38 Blood Pressure 115/82 H 06/07/18 09:38 O2 Sat (%) 96 06/07/18 09:38 O2 Delivery Mode Room Air Allergies/Adverse Reactions: hydrocortisone Allergy (Mild, Verified 04/30/18 06:13) Rash haloperidol Allergy (Verified 06/07/18 09:41) Home Medications: Medication Instructions Recorded Ondansetron Odt [Zofran Odt 4 mg 4 mg PO Q4HRS PRN 05/06/18 (*)] Promethazine HCl [Phenergan 25mg 25 mg PO Q8HRS PRN 05/06/18 (*)] Multivitamins [Multivitamin (*)] 1 each PO DAILY 05/07/18 Medical Decision Making ED Course/Re-evaluation: 9:51 a.m.: I reviewed the patient's old medical records. History of alcohol abuse, history of admission for acute alcohol withdrawal. He is tachycardic, tachypneic tremulous. Suspect more than likely acute alcohol withdrawal. Will check laboratory studies, administer 2 mg of IV Ativan and start patient on CIWA protocol. Doubt alcoholic hallucinosis, doubt Wernickes encephalopathy. 12:49 p.m.: Patient has received a total of 6 mg of Ativan in 3 equally divided doses. At this time I re-examined him, states that he is feeling"much much better"he would like to go home. He remains tremulous albeit less so, remains tachycardic in the 115 range. I have recommended admission to the hospital for Precedex drip as he has been on previously. He declines this stating that he believes he can "do this on my own". He has requested a take home prescription for Librium which I have declined as I do not think that is an appropriate means to detoxify at this time. He is answering questions appropriate this time doubt delirium tremens, doubt alcoholic hallucinosis. I have offered to speak with friends or family which he declines. - Data Points Laboratory Results: Laboratory Results 06/07/18 09:57 06/07/18 09:57 18 06/07/18 09:57 09:57 WBC 12.00 10^3/uL H 10^3/uL (3.80-9.50) RBC 4.80 10^6/uL 10^6/uL (4.40-6.38) Hgb 17.6 g/dL H g/dL (13.7-17.5) Hct 47.4 % % (40.0-51.0) MCV 98.8 fL fL (81.5-99.8) MCH 36.7 pg H pg (27.9-34.1) MCHC 37.1 g/dL H g/dL (32.4-36.7) RDW 12.4 % % (11.5-15.2) Plt Count 256 10^3/uL 10^3/uL (150-400) MPV 9.4 fL fL (8.7-11.7) Neut % (Auto) 66.8 % % (39.3-74.2) Lymph % (Auto) 23.3 % % (15.0-45.0) [place] % (Auto) 8.8 % % (4.5-13.0) Eos % (Auto) 0.4 % L % (0.6-7.6) Baso % (Auto) 0.4 % % (0.3-1.7) Nucleat RBC Rel Count 0.0 % % (0.0-0.2) Absolute Neuts (auto) 8.01 10^3/uL H 10^3/uL (1.70-6.50) Absolute Lymphs (auto) 2.80 10^3/uL 10^3/uL (1.00-3.00) Absolute Monos (auto) 1.06 10^3/uL H 10^3/uL (0.30-0.80) Absolute Eos (auto) 0.05 10^3/uL 10^3/uL (0.03-0.40) Absolute Basos (auto) 0.05 10^3/uL 10^3/uL (0.02-0.10) Absolute Nucleated RBC 0.00 10^3/uL 10^3/uL (0-0.01) Immature Gran % 0.3 % % (0.0-1.1) Immature Gran # 0.03 10^3/uL 10^3/uL (0.00-0.10) Sodium 139 mEq/L mEq/L (135-145) Potassium 3.8 mEq/L mEq/L (3.3-5.0) Chloride 95 mEq/L L mEq/L (97-110) Carbon Dioxide 19 mEq/l L mEq/l (22-31) Anion Gap 25 mEq/L H mEq/L (8-16) BUN 10 mg/dL mg/dL (7-23) Creatinine 0.8 mg/dL mg/dL (0.7-1.3) Estimated GFR > 60 Glucose 101 mg/dL H mg/dL (70-100) Calcium 10.2 mg/dL mg/dL (8.5-10.4) Total Bilirubin 1.8 mg/dL H mg/dL (0.1-1.4) Conjugated Bilirubin 0.5 mg/dL mg/dL (0.0-0.5) Unconjugated Bilirubin 1.3 mg/dL H mg/dL (0.0-1.1) AST 153 IU/L H IU/L (17-59) ALT 122 IU/L H IU/L (21-72) Alkaline Phosphatase 105 IU/L IU/L (38-126) Total Protein 8.8 g/dL H g/dL (6.3-8.2) Albumin 5.4 g/dL H g/dL (3.5-5.0) Lipase 79 IU/L IU/L (23-300) Ethyl Alcohol 79 mg/dL H mg/dL (0-10) Medications Given: Discontinued Medications Folic Acid (Folic Acid) 1 mg PO EDNOW ONE Stop: 06/07/18 09:55 Last Admin: 06/07/18 12:06 Dose: 1 mg Sodium Chloride (Ns) 1,000 mls @ 0 mls/hr IV ONCE ONE PRN Reason: Wide Open Stop: 06/07/18 09:49 Last Admin: 06/07/18 10:06 Dose: 1,000 mls Lorazepam (Ativan Injection) 2 mg IVP EDNOW ONE Stop: 06/07/18 09:52 Last Admin: 06/07/18 10:06 Dose: 2 mg Lorazepam (Ativan Injection) 0 mg IVP Q1H PRN; Protocol PRN Reason: Alcohol Withdrawal w/IV access Stop: 06/07/18 21:51 Last Admin: 06/07/18 12:06 Dose: 2 mg Ondansetron HCl (Zofran) 4 mg IVP EDNOW ONE Stop: 06/07/18 09:48 Last Admin: 06/07/18 10:06 Dose: 4 mg Thiamine HCl (Vitamin B-1) 100 mg PO EDNOW ONE Stop: 06/07/18 09:55 Last Admin: 06/07/18 12:06 Dose: 100 mg Departure - Departure Disposition: Home, Routine, Self-Care Clinical Impression: Alcohol withdrawal Qualifiers: Complication of substance-induced condition: uncomplicated Qualified Code(s): F10.230 - Alcohol dependence with withdrawal, uncomplicated Condition: Fair Instructions: Alcohol Withdrawal (ED) Additional Instructions: I have recommended you be admitted to the hospital for acute alcohol withdrawal. You have declined this. I have offered to send you to the [facility]. You have declined this. I do not think it is safe or effective for you to try to detox from alcohol on your own. If you change your mind you may come back to the emergency department. Referrals: [facility] [Outside] - 1 day without fail
[2018-06-07] MEDS ORDERED: THIAMINE HCL 100 MG TAB PO ONE (09:54)
[2018-06-07] MEDS ORDERED: FOLIC ACID 1 MG TAB PO ONE (09:54)
[2018-06-07 10:11] LABS: PLATELET COUNT 256 10^3/uL (150-400)
[2018-06-07] MEDS: LORazepam 2 MG/ML INJ IVP PRN ×2 (11:16→12:06)
[2018-06-07 13:07] VITALS: BP 126/92
== END 2018-06-07 13:14 | disposition home or self-care (01) ==
DX: F10.230 Alcohol dependence with withdrawal, uncomplicated (principal); R10.84 Generalized abdominal pain; R00.0 Tachycardia, unspecified; Y90.3 Blood alcohol level of 60-79 mg/100 ml
CPT/HCPCS: 96374; G0480; J2060; J2405

== ENCOUNTER 2018-06-11 02:44 | Emergency (ER) | payer OTHER ==
[2018-06-11] MEDS ORDERED: LIDOCAINE 2% JELLY 20 ML (UROJECT) UR ONE (03:05)
[2018-06-11] MEDS ORDERED: LORazepam 2 MG/ML INJ IVP ONE (03:11)
[2018-06-11] MEDS ORDERED: NS 1,000 ML IV ONE ×2 (03:11→03:35)
[2018-06-11 03:24] LABS: PLATELET COUNT 175 10^3/uL (150-400)
--- NOTE | 2018-06-11 03:33 | EDPHY ---
H & P Stated Complaint: WITHDRAWL, WAS SEEN LAST WEEK WENT HOME STILL DRINKING Time Seen by Provider: 06/11/18 02:55 HPI/ROS: HPI The patient presents with concern for alcohol withdrawal. He says that he was seen in the emergency department on June 07. He required a total of 6 mg of Ativan and it was recommended that he be admitted to the hospital, however he decided to return home. At home he did relapse on alcohol though stopped drinking yesterday. He did have several drinks before coming into the emergency department and thought that drinking alcohol would improve his symptoms, however it did not. He is reporting total body pain and aches throughout his body associated with diaphoresis, headaches, vomiting. He has been able to eat. He has been feeling intermittently dizzy. He does feel shaky.. REVIEW OF SYSTEMS 10 systems were reviewed and negative with the exception of the elements mentioned in the history of present illness. PMHx: GERD, history of abdominal pain Soc Hx: Chronic alcohol abuse PHYSICAL General Appearance: Alert, no distress Eyes: Pupils equal and round no pallor or injection, extraocular movements are full ENT, Mouth: Mucous membranes moist Respiratory: There are no retractions, lungs are clear to auscultation Cardiovascular: Regular rate and rhythm Gastrointestinal: Abdomen is soft and non-tender, no masses, bowel sounds normal Neurological: A&O, moves all extremities, no hand tremor, no tongue wag Skin: Warm and dry, no rashes Musculoskeletal: Neck is supple non tender Extremities: symmetrical, full range of motion Psychiatric: Patient is oriented X 3, there is no agitation Source: Patient Exam Limitations: No limitations - Personal History Current Tetanus/Diphtheria Vaccine: Yes Current Tetanus Diphtheria and Acellular Pertussis (TDAP): Yes - Medical/Surgical History Hx Asthma: No Hx Chronic Respiratory Disease: No Hx Diabetes: No Hx Cardiac Disease: No Hx Renal Disease: No Hx Cirrhosis: No Hx Alcoholism: Yes Hx HIV/AIDS: No Hx Splenectomy or Spleen Trauma: No Other PMH: insomnia, chronic abd pain, gerd - Social History Smoking Status: Never smoked Constitutional: Initial Vital Signs Temperature (C) 37.4 C 06/11/18 02:45 Heart Rate 95 06/11/18 02:45 Respiratory Rate 18 06/11/18 02:45 Blood Pressure 136/96 H 06/11/18 02:45 O2 Sat (%) 94 06/11/18 02:45 O2 Delivery Mode Room Air Allergies/Adverse Reactions: hydrocortisone Allergy (Mild, Verified 06/11/18 02:49) Rash haloperidol Allergy (Verified 06/11/18 02:49) Home Medications: Medication Instructions Recorded Ondansetron Odt [Zofran Odt 4 mg 4 mg PO Q4HRS PRN 05/06/18 (*)] Promethazine HCl [Phenergan 25mg 25 mg PO Q8HRS PRN 05/06/18 (*)] Multivitamins [Multivitamin (*)] 1 each PO DAILY 05/07/18 Medical Decision Making Differential Diagnosis: 32-year-old male with history of alcohol abuse and alcohol withdrawal presents with generalized body pain, mild withdrawal symptom is. On exam he is not tachycardic or hypertensive. He has very fine hand tremor. He is feeling slightly anxious. He is given IV fluids and Ativan. Labs were checked and revealed low magnesium and potassium. For this he was given supplemental magnesium and potassium. He was able to tolerate fluids without difficulty. His vital signs remained normal. His hand tremor improved. He asked to be discharged that he could go to work this morning. I have encouraged him to consider detox, however he is not interested at this point and continues to drink alcohol. Differential diagnoses considered include electrolyte disturbance, alcohol withdrawal, alcohol intoxication. - Data Points Laboratory Results: Laboratory Results 06/11/18 03:15 06/11/18 03:15 06/11/18 06/11/18 03:15 03:15 WBC 9.83 10^3/uL H 10^3/uL (3.80-9.50) RBC 4.14 10^6/uL L 10^6/uL (4.40-6.38) Hgb 15.2 g/dL g/dL (13.7-17.5) Hct 42.0 % % (40.0-51.0) MCV 101.4 fL H fL (81.5-99.8) MCH 36.7 pg H pg (27.9-34.1) MCHC 36.2 g/dL g/dL (32.4-36.7) RDW 12.4 % % (11.5-15.2) Plt Count 175 10^3/uL 10^3/uL (150-400) MPV 10.1 fL fL (8.7-11.7) Neut % (Auto) 69.6 % % (39.3-74.2) Lymph % (Auto) 20.1 % % (15.0-45.0) [place] % (Auto) 6.7 % % (4.5-13.0) Eos % (Auto) 3.0 % % (0.6-7.6) Baso % (Auto) 0.4 % % (0.3-1.7) Nucleat RBC Rel Count 0.0 % % (0.0-0.2) Absolute Neuts (auto) 6.84 10^3/uL H 10^3/uL (1.70-6.50) Absolute Lymphs (auto) 1.98 10^3/uL 10^3/uL (1.00-3.00) Absolute Monos (auto) 0.66 10^3/uL 10^3/uL (0.30-0.80) Absolute Eos (auto) 0.29 10^3/uL 10^3/uL (0.03-0.40) Absolute Basos (auto) 0.04 10^3/uL 10^3/uL (0.02-0.10) Absolute Nucleated RBC 0.00 10^3/uL 10^3/uL (0-0.01) Immature Gran % 0.2 % % (0.0-1.1) Immature Gran # 0.02 10^3/uL 10^3/uL (0.00-0.10) Sodium 137 mEq/L mEq/L (135-145) Potassium 3.1 mEq/L L mEq/L (3.3-5.0) Chloride 98 mEq/L mEq/L (97-110) Carbon Dioxide 28 mEq/l mEq/l (22-31) Anion Gap 11 mEq/L mEq/L (8-16) BUN 10 mg/dL mg/dL (7-23) Creatinine 0.6 mg/dL L mg/dL (0.7-1.3) Estimated GFR > 60 Glucose 103 mg/dL H mg/dL (70-100) Calcium 9.8 mg/dL mg/dL (8.5-10.4) Phosphorus 4.6 mg/dL H mg/dL (2.5-4.5) Magnesium 1.5 mg/dL L mg/dL (1.6-2.3) Total Bilirubin 1.3 mg/dL mg/dL (0.1-1.4) AST 228 IU/L H IU/L (17-59) ALT 180 IU/L H IU/L (21-72) Alkaline Phosphatase 71 IU/L IU/L (38-126) Total Protein 7.0 g/dL g/dL (6.3-8.2) Albumin 4.4 g/dL g/dL (3.5-5.0) Lipase 187 IU/L IU/L (23-300) Ethyl Alcohol 64 mg/dL H mg/dL (0-10) Medications Given: Discontinued Medications Sodium Chloride (Ns) 1,000 mls @ 0 mls/hr IV EDNOW ONE; Wide Open PRN Reason: Protocol Stop: 06/11/18 03:12 Last Admin: 06/11/18 03:21 Dose: 1,000 mls Sodium Chloride (Ns) 1,000 mls @ 0 mls/hr IV EDNOW ONE; Wide Open PRN Reason: Protocol Stop: 06/11/18 03:36 Last Admin: 06/11/18 04:24 Dose: 1,000 mls Magnesium Sulfate/Dextrose (Magnesium Sulf 1 Gm (Premix)) 100 mls @ 100 mls/hr IV ONCE ONE Stop: 06/11/18 04:52 Last Admin: 06/11/18 04:26 Dose: 100 mls Lidocaine (Uroject Lidocaine 2% Jelly) 20 ml UR EDNOW ONE Stop: 06/11/18 03:06 Last Admin: 06/11/18 03:07 Dose: Not Given Lorazepam (Ativan Injection) 1 mg IVP EDNOW ONE Stop: 06/11/18 03:12 Last Admin: 06/11/18 03:23 Dose: 1 mg Potassium Chloride (Klor Packets) 20 meq PO EDNOW ONE Stop: 06/11/18 04:26 Last Admin: 06/11/18 04:31 Dose: 20 meq Departure - Departure Disposition: Home, Routine, Self-Care Clinical Impression: Hypomagnesemia Abdominal pain Qualifiers: Abdominal location: generalized Qualified Code(s): R10.84 - Generalized abdominal pain Alcohol withdrawal Qualifiers: Complication of substance-induced condition: uncomplicated Qualified Code(s): F10.230 - Alcohol dependence with withdrawal, uncomplicated Condition: Good Instructions: Abuse of Alcohol (ED) Additional Instructions: Please return to the emergency department if your worse in any way. Referrals: Heri Malik MD [[facility] Primary Care Provider] - As per Instructions
[2018-06-11] MEDS ORDERED: MAGNESIUM SULF 1 GM/DEXTROSE 100 ML IV ONE (03:53)
[2018-06-11] MEDS ORDERED: POTASSIUM CL 20 MEQ PKT PO ONE (04:25)
[2018-06-11 06:22] VITALS: BP 125/81
== END 2018-06-11 06:07 | disposition home or self-care (01) ==
DX: F10.230 Alcohol dependence with withdrawal, uncomplicated (principal); E83.42 Hypomagnesemia; R10.84 Generalized abdominal pain; E86.9 Volume depletion, unspecified
CPT/HCPCS: 96365; G0480; J2060; J3475

== ENCOUNTER 2018-06-12 15:27 | Emergency (ER) | payer OTHER ==
[2018-06-12] MEDS ORDERED: ONDANSETRON 4 MG/2 ML VIAL IVP ONE (15:46)
[2018-06-12] MEDS ORDERED: NS 1,000 ML IV ONE (15:46)
[2018-06-12] MEDS ORDERED: LORazepam 2 MG/ML INJ IVP ONE ×2 (15:47→18:14)
--- NOTE | 2018-06-12 15:48 | EDPHY ---
H & P Stated Complaint: abd pain, anxiety, ETOH Time Seen by Provider: 06/12/18 15:32 HPI/ROS: CHIEF COMPLAINT: Diffuse body pain, withdrawal HISTORY OF PRESENT ILLNESS: Patient is a 32-year-old man with a history of chronic abdominal pain for the last several years who also has history of alcohol abuse and withdrawal who comes to the emergency department complaining of diffuse abdominal pain, insomnia and nausea. He states that this has been somewhat constant for him for the last several years and that he self medicates with alcohol. He is trying to taper off of the alcohol on his own. He started making abrasions to his forearms over last couple of days. He denies suicidality or homicidality. He denies fevers or recent infections. He is asking for help with his chronic pain and also withdrawals and also his cousin is here asking for referrals to [facility]. Severity: Severe Modifying factors: Improves with alcohol REVIEW OF SYSTEMS: Constitutional: denies: chills, fever, recent illness, recent injury EENTM: denies: blurred vision, double vision, nose congestion Respiratory: denies: cough, shortness of breath Cardiac: denies: chest pain, irregular heart rate, lightheadedness, palpitations Gastrointestinal/Abdominal: denies: abdominal pain, diarrhea, nausea, vomiting, blood streaked stools Genitourinary: denies: dysuria, frequency, hematuria, pain Musculoskeletal: denies: joint pain, muscle pain Skin: denies: lesions, rash, jaundice, bruising Neurological: denies: headache, numbness, paresthesia, tingling, dizziness, weakness Hematologic/Lymphatic: denies: blood clots, easy bleeding, easy bruising Immunologic/allergic: denies: HIV/AIDS, transplant 10 systems reviewed and negative except as noted EXAM: GENERAL: Moderate distress. HEAD: Atraumatic, normocephalic. EYES: Pupils equal round and reactive to light, extraocular movements intact, sclera anicteric, conjunctiva are normal. ENT: TMs normal, nares patent, oropharynx clear without exudates. Moist mucous membranes. NECK: Normal range of motion, supple without lymphadenopathy or JVD. LUNGS: Breath sounds clear to auscultation bilaterally and equal. No wheezes rales or rhonchi. HEART: Regular rate and rhythm without murmurs, rubs or gallops. ABDOMEN: Soft, nontender, normoactive bowel sounds. No guarding, no rebound. No masses appreciated. BACK: No CVA tenderness, no spinal tenderness, step-offs or deformities EXTREMITIES: Normal range of motion, no pitting or edema. No clubbing or cyanosis. NEUROLOGICAL: Slight tremor, Cranial nerves II through XII grossly intact. Normal speech, normal gait. 5/5 strength, normal movement in all extremities, normal sensation, normal reflexes PSYCH: Somewhat desperate, normal affect. SKIN: Some very shallow self-inflicted abrasions to both forearms palmar aspect , Warm, dry, normal turgor, no visible rashes or lesions. Source: Patient, Family, Old records Exam Limitations: No limitations - Personal History Current Tetanus/Diphtheria Vaccine: Yes Current Tetanus Diphtheria and Acellular Pertussis (TDAP): Yes - Medical/Surgical History Hx Asthma: Yes Hx Chronic Respiratory Disease: No Hx Diabetes: No Hx Cardiac Disease: No Hx Renal Disease: No Hx Cirrhosis: No Hx Alcoholism: Yes Hx HIV/AIDS: No Hx Splenectomy or Spleen Trauma: No Other PMH: insomnia, chronic abd pain, gerd, ETOH abuse/withdrawl - Family History Significant Family History: No pertinent family hx - Social History Smoking Status: Never smoked Alcohol Use: Heavy Drug Use: Marijuana Constitutional: Initial Vital Signs Temperature (C) 37.1 C 06/12/18 15:31 Heart Rate 100 06/12/18 15:31 Respiratory Rate 20 06/12/18 15:31 Blood Pressure 126/88 H 06/12/18 15:31 O2 Sat (%) 92 06/12/18 15:31 O2 Delivery Mode Room Air Allergies/Adverse Reactions: hydrocortisone Allergy (Mild, Verified 06/12/18 15:31) Rash haloperidol Allergy (Verified 06/12/18 15:31) Medical Decision Making ED Course/Re-evaluation: Patient tells me that he wishes to go to alcohol treatment program but is not willing to [facility]. He does have insurance. We discussed private options. His cousin feels that he has "hit rock bottom". He is not suicidal or homicidal. I do not feel that a mental health hold is warranted but mental health evaluation may help him get into a treatment program. We will consult [facility]. 5:20 p.m. The patient is feeling much better. He no longer has "pain all over" . He still has is mild chronic abdominal pain. Is LFTs are slightly elevated but look to be about baseline for him. He has no tenderness on exam. He has spoke with [facility] over the phone who is willing to take him for alcohol treatment program at 8:00 a.m.. He will go home with his cousin eh who will help administer Librium as needed. 6:45 p.m. the patient is feeling much better after more Ativan. He is sleeping comfortably. He is arousable. He did not like the way Haldol made him feel. He states that it made him feel worse. 7:45 p.m. the patient is feeling much better. He is awake and alert and talking to his cousin on the phone. He is not having any withdrawal symptoms currently. He is ready to go home. His cousin will be here to pick him up in 45 min. We discussed Librium prepack. He has an appointment at 8 o'clock am to check in at [facility]. Differential Diagnosis: Partial list of the Differential diagnosis considered include but were not limited to; alcohol withdrawal, chronic abdominal pain, cirrhosis, cyclic vomiting, cannabis abuse and although unlikely based on the history and physical exam, I also considered appendicitis, biliary disease, pancreatitis, peptic ulcer disease, obstruction. I discussed these differential diagnoses and the plan with the patient as well as the usual and expected course. The patient understands that the diagnosis is provisional and that in medicine we are not always correct and that further workup is often warranted. Usual and customary warnings were given. All of the patient's questions were answered. The patient was instructed to return to the emergency department should the symptoms at all worsen or return, otherwise to followup with the physician as we discussed. - Data Points Laboratory Results: Laboratory Results 06/12/18 16:32 06/12/18 16:32 Medications Given: Discontinued Medications Chlordiazepoxide (Librium 25 Mg Prepack#6) 1 btl TAKEHOME EDNOW ONE Stop: 06/12/18 19:57 Last Admin: 06/12/18 20:04 Dose: 1 btl Diphenhydramine HCl (Benadryl Injection) 25 mg IVP EDNOW ONE Stop: 06/12/18 17:50 Last Admin: 06/12/18 17:57 Dose: 25 mg Haloperidol Lactate (Haldol Injection) 2.5 mg IVP EDNOW ONE Stop: 06/12/18 17:19 Last Admin: 06/12/18 17:58 Dose: 2.5 mg Sodium Chloride (Ns) 1,000 mls @ 0 mls/hr IV EDNOW ONE; Wide Open PRN Reason: Protocol Stop: 06/12/18 15:47 Last Admin: 06/12/18 16:33 Dose: 1,000 mls Lorazepam (Ativan Injection) 2 mg IVP EDNOW ONE Stop: 06/12/18 15:48 Last Admin: 06/12/18 16:34 Dose: 2 mg Lorazepam (Ativan Injection) 2 mg IVP EDNOW ONE Stop: 06/12/18 18:15 Last Admin: 06/12/18 18:15 Dose: 2 mg Ondansetron HCl (Zofran) 4 mg IVP EDNOW ONE Stop: 06/12/18 15:47 Last Admin: 06/12/18 16:34 Dose: 4 mg Departure - Departure Disposition: Home, Routine, Self-Care Clinical Impression: Chronic abdominal pain Alcohol withdrawal Qualifiers: Complication of substance-induced condition: uncomplicated Qualified Code(s): F10.230 - Alcohol dependence with withdrawal, uncomplicated Condition: Fair Instructions: Chlordiazepoxide (By mouth), Alcohol Withdrawal (ED), Chronic Abdominal Pain (ED) Referrals: Heri Malik MD [Primary Care Provider] - As per Instructions Frankie Paz MD [Medical Doctor] - 2-3 days without fail (as scheduled)
[2018-06-12 16:43] LABS: PLATELET COUNT 202 10^3/uL (150-400)
[2018-06-12] MEDS ORDERED: HALOPERIDOL LACT 5 MG/ML INJ IVP ONE (17:18)
--- NOTE | 2018-06-12 17:50 | ASMTCMCOM ---
CM Note CM Note Notes: Pt presented to the ED for abdominal pain, anxiety and ETOH w/d symptoms. Pt's last drink was about an hour prior to arrival to the ED. This is the pt's 11th ED visit since Oct 2017; pt was recently admitted 05/06 - 05/08/18 for ETOH w/d but declined further substance abuse treatment resources at that time of DC. Pt presented again to the ED 06/07 and 06/11. Pt interested in ETOH treatment at this time; pt provided a list of various resources and treatment options. Pt encouraged to call [facility] and schedule an intake assessment. Pt called and is scheduled for tomorrow 06/13/18 at 8:30 a.m. Pt declines the offer of going to [facility] for tonight. Plan is for patient to return home accompanied by his cousin who will administer Librium as needed, and to follow-up w/CP tomorrow morning. CM available for further assistance if needed. Date Signed: 06/12/2018 05:49 PM Electronically Signed By:Amanda Dimas RN
[2018-06-12] MEDS ORDERED: LORazepam 2 MG/ML INJ ONE (18:14)
[2018-06-12] MEDS ORDERED: CHLORDIAZEPOXIDE 25MG PREPK#6 BTL TAKEHOME ONE (19:56)
[2018-06-12 21:03] VITALS: BP 102/56
== END 2018-06-12 21:03 | disposition home or self-care (01) ==
DX: R10.9 Unspecified abdominal pain (principal); G89.29 Other chronic pain; F10.230 Alcohol dependence with withdrawal, uncomplicated; E86.9 Volume depletion, unspecified
CPT/HCPCS: 96374; J1200; J1630; J2060; J2405

== ENCOUNTER 2018-06-28 17:22 | Emergency (ER) | payer OTHER ==
--- NOTE | 2018-06-28 17:50 | EDPHY ---
H & P Stated Complaint: psych/ w/d - Personal History Current Tetanus Diphtheria and Acellular Pertussis (TDAP): Unsure - Medical/Surgical History Hx Asthma: Yes Hx Chronic Respiratory Disease: No Hx Diabetes: No Hx Cardiac Disease: No Hx Renal Disease: No Hx Cirrhosis: No Hx Alcoholism: Yes Hx HIV/AIDS: No Hx Splenectomy or Spleen Trauma: No Other PMH: insomnia, chronic abd pain, gerd, ETOH abuse/withdrawl - Social History Smoking Status: Never smoked Time Seen by Provider: 06/28/18 17:50 Constitutional: Initial Vital Signs Temperature (C) 37.1 C 06/28/18 17:26 Heart Rate 94 06/28/18 17:26 Respiratory Rate 16 06/28/18 17:26 Blood Pressure 124/90 H 06/28/18 17:26 O2 Sat (%) 94 06/28/18 17:26 O2 Delivery Mode Room Air Allergies/Adverse Reactions: hydrocortisone Allergy (Mild, Verified 06/12/18 15:31) Rash haloperidol Allergy (Verified 06/12/18 15:31) Home Medications: Medication Instructions Recorded Dicyclomine 06/28/18 Gabapentin 06/28/18 Hydroxyzine HCl 06/28/18 Melatonin 06/28/18 Promethazine HCl 06/28/18 Ranitidine HCl 06/28/18 Rozerem 06/28/18 Zofran 06/28/18 Medical Decision Making ED Course/Re-evaluation: CHIEF COMPLAINT: "I think I'm going through alcohol withdrawal" HISTORY OF PRESENT ILLNESS: The patient is a 33 y/o male with a history of alcoholism arriving with his friend complaining of symptoms of alcohol withdrawal. This is his 12th visit here this year. He was seen here 2.5 weeks ago and was admitted to [facility] for a week for detox. He reports he did well there. Upon leaving he was sober for about 24 hours and then decided to smoke marijuana. Within a few days he was drinking alcohol again. Today he drank a small quantity of alcohol this morning. This afternoon he describes shakiness and getting distracted in the middle of tasks. He is also cutting himself to deal with symptoms per friend at bedside. He denies suicidal ideation , recent illness, recent trauma, or other intoxicants. REVIEW OF SYSTEMS: A comprehensive 10 system review of systems is otherwise negative aside from elements mentioned in the history of present illness and medical decision making. PHYSICAL EXAM: General Appearance: Alert, well hydrated, appropriate, and non-toxic appearing. Head: Atraumatic without scalp tenderness or obvious injury Eyes: Pupils equal, round, reactive to light and accommodation, EOMI, no trauma , no injection. Nose: Atraumatic, no rhinorrhea, clear. Throat: Mucus membranes moist. Neck: Supple, nontender, no lymphadenopathy. Respiratory: No retractions, no distress, no wheezes, and no accessory muscle use. Lungs are clear to auscultation bilaterally. Cardiovascular: Regular rate and rhythm, no murmurs, rubs, or gallops.Good capillary refill all extremities. Gastrointestinal: Abdomen is soft, nontender, non-distended, no masses, no rebound, no guarding, no peritoneal signs. Musculoskeletal: Normal active ROM of all extremities, atraumatic. Neurological: Alert, appropriate, and interactive. The patient has non-focal cranial nerves, motor, sensory, and cerebellar exam. Skin: No rashes, good turgor, no nodules on palpation. PAST MEDICAL HISTORY: Alcoholism PAST SURGICAL HISTORY: Noncontributory SOCIAL HISTORY: Friend at bedside. Unemployed. DIFFERENTIAL DIAGNOSIS: The differential diagnosis for the patient's symptoms included but was not limited to functional and major depression, situational depression, medication side effect, drugs, and alcohol abuse. MEDICAL DECISION MAKING: Patient is in no acute distress and is hemodynamically stable. We are awaiting psychiatric team's evaluation. Patient has known history of psychiatric disorders and is here for evaluation. Patient is acutely withdrawing with CIWA score of 15. Elevated anion gap, elevated WBC, and EtOH serum of zero. (En Gan) 2000: Patient was signed out to me at change of shift. Per report, patient will be treated in the emergency department for his alcohol withdrawal. I went personally evaluated the patient on sign out. The patient was doing better. I discussed the care with the patient's nurse. The patient will continue on a CIWA protocol[place] [address]. Hematocrit was 45. Platelets were 344. Patient's initial chemistry panel showed a sodium 135 potassium 4.6, chloride 94, carbon dioxide was low at 17, anion gap is elevated 24, creatinine was 0.7. Repeat chemistry panel was ordered. Patient's repeat sodium was 134. Repeat anion gap is improved at 16. Carbon dioxide is low at 18. Repeat CIWA 1. Patient will have psychiatric evaluation. If the psychiatric evaluation is unremarkable, the patient will be discharged home. (Sharmin Man) 530: Patient was signed over to me at 11:00 p.m. Shift change. Patient is pending mental evaluation which she has had. Patient is not suicidal contracts for safety. Would not benefit from inpatient psychiatric hospitalization. His alcohol draw is much improved. He feels much better he would like to be discharged home. Patient and contracts for safety. Denies SI or HI. States he would like to go home. Return precautions discussed with the patient understands return emergency room if he develops any worsening symptoms questions or concerns. (Bryn Waggoner) Differential Diagnosis: Differential includes alcohol abuse, alcohol withdrawal, electrolyte abnormality , sugar abnormality, psychosis (Sharmin Man) - Data Points Laboratory Results: Laboratory Results 06/28/18 18:05 06/28/18 21:18 06/28/18 06/28/18 06/28/18 21:18 18:50 18:05 WBC RBC Hgb Hct MCV MCH MCHC RDW Plt Count MPV Neut % (Auto) Lymph % (Auto) [place] % (Auto) Eos % (Auto) Baso % (Auto) Nucleat RBC Rel Count Absolute Neuts (auto) Absolute Lymphs (auto) Absolute Monos (auto) Absolute Eos (auto) Absolute Basos (auto) Absolute Nucleated RBC Immature Gran % Immature Gran # Sodium 134 mEq/L L mEq/L (135-145) Potassium 4.1 mEq/L mEq/L (3.3-5.0) Chloride 100 mEq/L mEq/L (97-110) Carbon Dioxide 18 mEq/l L mEq/l (22-31) Anion Gap 16 mEq/L H mEq/L (6-14) BUN 7 mg/dL mg/dL (7-23) Creatinine 0.6 mg/dL L mg/dL (0.7-1.3) Estimated GFR > 60 Glucose 82 mg/dL mg/dL (70-100) Calcium 8.4 mg/dL L mg/dL (8.5-10.4) Lipase 121 IU/L IU/L (23-300) Salicylates Urine Opiates Screen NEGATIVE (NEGATIVE) Acetaminophen Urine Barbiturates NEGATIVE (NEGATIVE) Ur Phencyclidine Scrn NEGATIVE (NEGATIVE) Ur Amphetamine Screen NEGATIVE (NEGATIVE) U Benzodiazepines Scrn NON-NEGATIVE H (NEGATIVE) Urine Cocaine Screen NEGATIVE (NEGATIVE) U Marijuana (THC) Screen NEGATIVE (NEGATIVE) Ethyl Alcohol 06/28/18 06/28/18 18:05 18:05 WBC 14.48 10^3/uL H 10^3/uL (3.80-9.50) RBC 4.55 10^6/uL 10^6/uL (4.40-6.38) Hgb 16.4 g/dL g/dL (13.7-17.5) Hct 45.2 % % (40.0-51.0) MCV 99.3 fL fL (81.5-99.8) MCH 36.0 pg H pg (27.9-34.1) MCHC 36.3 g/dL g/dL (32.4-36.7) RDW 12.4 % % (11.5-15.2) Plt Count 344 10^3/uL 10^3/uL (150-400) MPV 9.5 fL fL (8.7-11.7) Neut % (Auto) 85.8 % H % (39.3-74.2) Lymph % (Auto) 9.5 % L % (15.0-45.0) [place] % (Auto) 3.9 % L % (4.5-13.0) Eos % (Auto) 0.1 % L % (0.6-7.6) Baso % (Auto) 0.5 % % (0.3-1.7) Nucleat RBC Rel Count 0.0 % % (0.0-0.2) Absolute Neuts (auto) 12.41 10^3/uL H 10^3/uL (1.70-6.50) Absolute Lymphs (auto) 1.38 10^3/uL 10^3/uL (1.00-3.00) Absolute Monos (auto) 0.57 10^3/uL 10^3/uL (0.30-0.80) Absolute Eos (auto) 0.02 10^3/uL L 10^3/uL (0.03-0.40) Absolute Basos (auto) 0.07 10^3/uL 10^3/uL (0.02-0.10) Absolute Nucleated RBC 0.00 10^3/uL 10^3/uL (0-0.01) Immature Gran % 0.2 % % (0.0-1.1) Immature Gran # 0.03 10^3/uL 10^3/uL (0.00-0.10) Sodium 135 mEq/L mEq/L (135-145) Potassium 4.6 mEq/L mEq/L (3.3-5.0) Chloride 94 mEq/L L mEq/L (97-110) Carbon Dioxide 17 mEq/l L mEq/l (22-31) Anion Gap 24 mEq/L H mEq/L (6-14) BUN 8 mg/dL mg/dL (7-23) Creatinine 0.7 mg/dL mg/dL (0.7-1.3) Estimated GFR > 60 Glucose 67 mg/dL L mg/dL (70-100) Calcium 10.5 mg/dL H mg/dL (8.5-10.4) Lipase Salicylates < 1.0 mg/dL L mg/dL (2.0-20.0) Urine Opiates Screen Acetaminophen < 10 mcg/mL L mcg/mL (10-30) Urine Barbiturates Ur Phencyclidine Scrn Ur Amphetamine Screen U Benzodiazepines Scrn Urine Cocaine Screen U Marijuana (THC) Screen Ethyl Alcohol < 10 mg/dL mg/dL (0-10) Medications Given: Lorazepam (Ativan) 0 mg PO Q4H PRN; Protocol PRN Reason: Alcohol Withdrawal w/IV access Stop: 06/29/18 08:06 Last Admin: 06/28/18 21:19 Dose: 2 mg Discontinued Medications Chlordiazepoxide HCl (Librium) 50 mg PO EDNOW ONE Stop: 06/28/18 19:41 Last Admin: 06/28/18 19:49 Dose: 50 mg Sodium Chloride (Ns) 1,000 mls @ 0 mls/hr IV ONCE ONE; Wide Open PRN Reason: Protocol Stop: 06/28/18 19:45 Last Admin: 06/28/18 19:48 Dose: 1,000 mls Sodium Chloride (Ns) 1,000 mls @ 0 mls/hr IV ONCE ONE; Wide Open PRN Reason: Protocol Stop: 06/28/18 19:45 Last Admin: 06/28/18 19:49 Dose: 1,000 mls Lorazepam (Ativan Injection) 2 mg IVP EDNOW ONE Stop: 06/28/18 19:27 Last Admin: 06/28/18 19:29 Dose: 2 mg Departure - Departure Disposition: Home, Routine, Self-Care Clinical Impression: Alcohol withdrawal Qualifiers: Complication of substance-induced condition: with perceptual disturbance Qualified Code(s): F10.232 - Alcohol dependence with withdrawal with perceptual disturbance Condition: Fair Instructions: Alcohol Withdrawal (ED) Additional Instructions: Return with anxiety, tremors, chest pain, shortness of breath or any other concerns. Referrals: Charisma Holland DO [Doctor of Osteopathy] - 5-7 days, call for appt. Report Scribed for: En Gan Report Scribed by: Adrianne Hussein Date of Report: 06/28/18 Time of Report: 17:59
[2018-06-28 18:22] LABS: PLATELET COUNT 344 10^3/uL (150-400)
[2018-06-28] MEDS ORDERED: LORazepam 2 MG/ML INJ ONE (19:25)
[2018-06-28] MEDS ORDERED: LORazepam 2 MG/ML INJ IVP ONE (19:26)
[2018-06-28] MEDS ORDERED: chlordiazePOXIDE 25 MG CAP PO ONE (19:40)
[2018-06-28] MEDS ORDERED: NS 1,000 ML IV ONE ×2 (19:44)
[2018-06-28] MEDS ORDERED: LORazepam 1 MG TAB PO PRN ×2 (20:06→20:12)
[2018-06-28] MEDS ORDERED: LORazepam 2 MG/ML INJ IVP PRN ×2 (20:06→20:12)
[2018-06-29] MEDS ORDERED: CHLORDIAZEPOXIDE 25MG PREPK#6 BTL TAKEHOME ONE (05:34)
[2018-06-29 05:41] VITALS: BP 130/74
== END 2018-06-29 05:40 | disposition home or self-care (01) ==
DX: F10.231 Alcohol dependence with withdrawal delirium (principal); E86.9 Volume depletion, unspecified
CPT/HCPCS: 80305; 96374; G0480; J2060